=== PATIENT | male | born 1955 | race Caucasian/White ===

== ENCOUNTER 2016-11-15 17:36 | Observation (INO) | payer MEDICARE, MEDICAID ==
--- NOTE | 2016-11-15 17:51 | ER Document Report ---
ED Medical Screen (RME) - General Chief Complaint: Abdominal Pain Stated Complaint: ABDOMINAL PAIN Time Seen by Provider: 11/15/16 17:49 Mode of Arrival: Ambulatory Information source: Patient TRAVEL OUTSIDE OF THE [place] IN LAST 30 DAYS: No - HPI Patient complains to provider of: Abdominal pain, no bowel movement 2 days, vomiting Notes: 11/15/16 17:50 Patient is a 60-year-old male presenting to the emergency room from urgent care secondary to abdominal pain, patient has a history of a bowel resection in August 2015 secondary to cancer, over the past 2-3 days he has been having increasing abdominal bloating and distention, with no bowel movement and no passage of gas through his colostomy bag, he also had some vomiting - Related Data Allergies/Adverse Reactions: clindamycin [Clindamycin] Allergy (Mild, Verified 03/22/15 15:26) codeine [Codeine] Allergy (Mild, Verified 03/22/15 15:26) hydrocodone [Hydrocodone] Allergy (Mild, Verified 03/22/15 15:26) Past Medical History - Past Medical History Cardiac Medical History: Reports: Hx Hypertension Renal/ Medical History: Denies: Hx Peritoneal Dialysis Musculoskeltal Medical History: Reports Hx Fibromyalgia - Immunizations Hx Diphtheria, Pertussis, Tetanus Vaccination: No Physical Exam - Vital signs Vitals: Temp Pulse Resp BP Pulse Ox 98.4 F 110 H 18 145/91 H 94 11/15/16 17:39 11/15/16 17:39 11/15/16 17:39 11/15/16 17:39 11/15/16 17:39 Course - Vital Signs Vital signs: Temp Pulse Resp BP Pulse Ox 98.4 F 110 H 18 145/91 H 94 11/15/16 17:39 11/15/16 17:39 11/15/16 17:39 11/15/16 17:39 11/15/16 17:39
[2016-11-15] MEDS: NORMAL SALINE 1000 ML 1,000 ML IV PRN ×2 (18:05→19:42)
[2016-11-15 18:17] LABS: ABSOLUTE BASOPHILS # (AUTO) 0.1 10^3/uL (0.0-0.2); ABSOLUTE LYMPHOCYTES (AUTO) 1.4 10^3/uL (0.5-4.7); ABSOLUTE MONOCYTES (AUTO) 1.5 10^3/uL (0.1-1.4); ABSOLUTE NEUT (AUTO) 15.8 10^3/uL (1.7-8.2); BASOPHILS % (AUTO) 0.3 % (0-2); HEMOGLOBIN 17.7 g/dL (13.5-17.0); HGB HCT DIFFERENCE 2.1; LYMPHOCYTES % (AUTO) 7.7 % (13-45); MEAN CORPUSCULAR HEMOGLOBIN 30.3 pg (27.0-33.4); MEAN CORPUSCULAR HGB CONC 34.8 g/dL (32.0-36.0); MEAN CORPUSCULAR VOLUME 87 fl (80-97); MONOCYTES % (AUTO) 8.1 % (3-13); RED BLOOD COUNT 5.86 10^6/uL (4.35-5.55); SEGMENTED NEUTROPHILS % (AUTO) 83.9 % (42-78); WHITE BLOOD COUNT 18.8 10^3/uL (4.0-10.5)
[2016-11-15 18:26] LABS: APPEARANCE,URINE SLIGHTLY-CLOUDY; BILIRUBIN,URINE NEGATIVE (NEGATIVE); GLUCOSE, URINE NEGATIVE (NEGATIVE); KETONES,URINE TRACE mg/dL (NEGATIVE); LEUKOCYTE ESTERASE,URINE NEGATIVE (NEGATIVE); NITRITE,URINE NEGATIVE (NEGATIVE); PROTEIN,URINE 30 mg/dL (NEGATIVE); URINE SPECIFIC GRAVITY 1.032
[2016-11-15 18:34] LABS: ALANINE AMINOTRANSFERASE 19 U/L (21-72); ALBUMIN 4.8 g/dL (3.5-5.0); ALKALINE PHOSPHATASE 107 U/L (38-126); ANION GAP 15 (5-19); ASPARTATE AMINO TRANSFERASE 25 U/L (17-59); BILIRUBIN,DIRECT 0.5 mg/dL (0.0-0.4); BILIRUBIN,TOTAL 1.2 mg/dL (0.2-1.3); BLOOD UREA NITROGEN 34 mg/dL (7-20); CALCIUM 10.3 mg/dL (8.4-10.2); CARBON DIOXIDE 26 mmol/L (22-30); CHLORIDE 97 mmol/L (98-107); CREATININE RESULT 1.14 mg/dL (0.52-1.25); GLUCOSE 145 mg/dL (75-110); LIPASE 24.9 U/L (23-300); POTASSIUM 4.2 mmol/L (3.6-5.0); SODIUM 138.4 mmol/L (137-145); TOTAL PROTEIN 8.8 g/dL (6.3-8.2)
[2016-11-15] MEDS ORDERED: ONDANSETRON HCL INJ/PF 4 MG/2 ML SDV IV ONE (18:40)
--- NOTE | 2016-11-15 19:17 | ER Document Report ---
ED General - General Chief Complaint: Abdominal Pain Stated Complaint: ABDOMINAL PAIN Time Seen by Provider: 11/15/16 17:49 Mode of Arrival: Ambulatory Notes: Patient is a 60-year-old male with a past medical history of colon cancer status post partial colonic resection and a diverting ostomy placed 2 years ago who presents with 2 days of vomiting of what he describes to be mucus with flecks of brown material as well as an absence of any flatus or bowel movement into the ostomy bag. He does also note a generalized abdominal discomfort which he describes as a cramping, intermittent, moderately uncomfortable pain. Nothing improves or worsens his symptoms. States he has had similar episodes in the past which have resolved spontaneously at home without any need for hospitalization but he has never had vomiting in the past. He denies any fever or constitutional symptoms. He has not spoken to his surgeon regarding today's episode or concerns. TRAVEL OUTSIDE OF THE [place] IN LAST 30 DAYS: No - Related Data Allergies/Adverse Reactions: clindamycin [Clindamycin] Allergy (Mild, Verified 11/15/16 22:29) codeine [Codeine] Allergy (Mild, Verified 11/15/16 22:29) hydrocodone [Hydrocodone] Allergy (Mild, Verified 11/15/16 22:29) Home Medications: Current Home Medications Cholecalciferol (Vitamin D3) [Vitamin D3 3000 unit Tablet] 3,000 MEALS 11/15/16 [History] Past Medical History - General Information source: Patient - Social History Smoking Status: Never Smoker Frequency of alcohol use: None Drug Abuse: None Lives with: Alone Family History: Reviewed & Not Pertinent - Past Medical History Cardiac Medical History: Reports: Hx Hypertension Renal/ Medical History: Denies: Hx Peritoneal Dialysis Musculoskeltal Medical History: Reports Hx Fibromyalgia Past Surgical History: Reports: Hx Abdominal Surgery - colon resection - Immunizations Hx Diphtheria, Pertussis, Tetanus Vaccination: No Review of Systems - Review of Systems Notes: Constitutional: Negative for fever. HENT: Negative for sore throat. Eyes: Negative for visual changes. Cardiovascular: Negative for chest pain. Respiratory: Negative for shortness of breath. Gastrointestinal: Positive for abdominal pain and vomiting Genitourinary: Negative for dysuria. Musculoskeletal: Negative for back pain. Skin: Negative for rash. Neurological: Negative for headaches, weakness or numbness. 10 point ROS negative except as marked above and in HPI. Physical Exam - Vital signs Vitals: Temp Pulse Resp BP Pulse Ox 98.4 F 110 H 18 145/91 H 94 11/15/16 17:39 11/15/16 17:39 11/15/16 17:39 11/15/16 17:39 11/15/16 17:39 Interpretation: Tachycardic Notes: PHYSICAL EXAMINATION: GENERAL: Appears somewhat ill but in no acute distress HEAD: Atraumatic, normocephalic. EYES: Pupils equal round and reactive to light, extraocular movements intact, sclera anicteric, conjunctiva are normal. ENT: nares patent, oropharynx clear without exudates. Moderately dry mucous membranes. NECK: Normal range of motion, supple without lymphadenopathy LUNGS: Breath sounds clear to auscultation bilaterally and equal. No wheezes rales or rhonchi. HEART: Regular rate and rhythm without murmurs ABDOMEN: Mildly protuberant abdomen, no rigidity, soft on palpation. No localized abdominal tenderness. Hyperactive bowel sounds. No guarding, no rebound. No masses appreciated. EXTREMITIES: Normal range of motion, no pitting or edema. No cyanosis. NEUROLOGICAL: No focal neurological deficits. Moves all extremities spontaneously and on command. PSYCH: Normal mood, normal affect. SKIN: Warm, Dry, normal turgor, no rashes or lesions noted. Course - Re-evaluation Re-evalutation: 11/15/16 19:12 Patient presents with a clinical history most concerning for mechanical small bowel obstruction given the lack of a bowel movement, no flatus, and active vomiting with what sounds to be feculent material. His abdomen is protuberant on exam but without any focal areas of tenderness, some mild diffuse discomfort to palpation. Patient does also appear clinically dehydrated and his urine specific gravity is noted to be elevated at 1.032 although there is no evidence of an acute kidney injury on his conference of metabolic panel. CBC is notable for leukocytosis. Will proceed with CT abdomen pelvis with IV contrast. 2100 CT does demonstrate findings consistent with a likely obstruction. NG tube is in place. I have consulted with Dr. Sanchez who will admit. - Vital Signs Vital signs: Temp Pulse Resp BP Pulse Ox 98.3 F 110 H 17 140/79 H 96 11/15/16 22:50 11/15/16 22:50 11/15/16 22:50 11/15/16 22:50 11/15/16 22:50 - Laboratory Result Diagrams: 11/15/16 18:05 11/15/16 18:05 Laboratory results interpreted by me: 11/15/16 11/15/16 11/15/16 18:05 18:05 18:05 WBC 18.8 H RBC 5.86 H Hgb 17.7 H Seg Neutrophils % 83.9 H Lymphocytes % 7.7 L Absolute Neutrophils 15.8 H Absolute Monocytes 1.5 H Chloride 97 L BUN 34 H Glucose 145 H Calcium 10.3 H Direct Bilirubin 0.5 H ALT 19 L Total Protein 8.8 H Urine Protein 30 H Urine Ketones TRACE H Urine Urobilinogen 4.0 H Urine Ascorbic Acid 20 H - Diagnostic Test Radiology reviewed: Reports reviewed Discharge - Discharge Clinical Impression: Small bowel obstruction Condition: Fair Disposition: ADMITTED INPATIENT Admitting Provider: Surgicalist - Laura Unit Admitted: Surgical Floor
--- NOTE | 2016-11-15 19:58 | RADIOLOGY REPORT (SQ) ---
EXAM DESCRIPTION: CT ABD/PELVIS WITH IV ONLY COMPLETED DATE/TIME: 11/15/2016 7:38 pm REASON FOR STUDY: eval sbo COMPARISON: None. TECHNIQUE: CT scan of the abdomen and pelvis performed using helical scanning technique with dynamic intravenous contrast injection. No oral contrast. Images reviewed with lung, soft tissue, and bone windows. Reconstructed coronal and sagittal MPR images reviewed. Delayed images for evaluation of the urinary system also acquired. All images stored on PACS. All CT scanners at this facility use dose modulation, iterative reconstruction, and/or weight based d osing when appropriate to reduce radiation dose to as low as reasonably achievable (ALARA). [facility]: Dose Right [facility]: CareDose [facility]: Dose Right [facility]: Teradose 4D [facility]: Tellja CONTRAST TYPE AND DOSE: contrast/concentration: Isovue 370.00 mg/ml; Total Contrast Delivered: 95.0 ml; Total Saline Delivered: 71.0 ml RENAL FUNCTION: BUN 34; creatinine 1.14 RADIATION DOSE: Up-to-date CT equipment and radiation dose reduction techniques were employed. CTDIv ol: 14.6 - 19.5 mGy. DLP: 1807 mGy-cm.. LIMITATIONS: None. FINDINGS: LOWER CHEST: No significant findings. No nodules or infiltrates. Incidental note is made of lingular scarring. LIVER: Normal size. No masses. No dilated ducts. SPLEEN: Normal size. No focal lesions. PANCREAS: No masses. No significant calcifications. No adjacent inflammation or peripancreatic fluid collections. Pancreatic duct not dilated. GALLBLADDER: Gallstones. No inflammatory changes to suggest cholecystitis. ADRENAL GLANDS: No significant masses or asymmetry. RIGHT KIDNEY AND URETER: No solid masses. Incidental note is made of multiple small renal cysts. N o significant calcifications. No hydronephrosis or hydroureter. LEFT KIDNEY AND URETER: No solid masses. Incidental note is made of multiple renal cysts. No signi ficant calcifications. No hydronephrosis or hydroureter. AORTA AND VESSELS: No aneurysm. No dissection. Renal arteries, SMA, celiac without stenosis. RETROPERITONEUM: No retroperitoneal adenopathy, hemorrhage or masses. BOWEL AND PERITONEAL CAVITY: A left-sided colostomy is present. Multiple prominent fluid-filled loop s of jejunum and ileum are present, without evidence of torsion or mechanical obstruction. A small a mount of free fluid is seen adjacent to these loops of small bowel within the pelvis. There is no pn eumoperitoneum. APPENDIX: Normal. PELVIS: No mass. Normal bladder. ABDOMINAL WALL: Left ventral ostomy. No masses. No hernias. BONES: No significant or acute findings. OTHER: No other significant finding. IMPRESSION: Dilated loops of fluid-filled small bowel without evidence of volvulus or mechanical obs truction, consistent with ileus versus developing SBO. These findings are seen in the setting of a l eft-sided colostomy. TECHNICAL DOCUMENTATION: JOB ID: [id number] Quality ID # [id number]: Final reports with documentation of one or more dose reduction techniques (e.g., Au tomated exposure control, adjustment of the mA and/or kV according to patient size, use of iterative reconstruction technique) 2010 [employer]- All Rights Reserved
[2016-11-15] MEDS ORDERED: MIDAZOLAM 2 MG/2 ML INJ IV ONE (20:15)
[2016-11-15] MEDS ORDERED: RINGERS SOLUTION,LACTATED 1,000 ML IV ONE (20:17)
[2016-11-15] MEDS: MORPHINE SULFATE 10 MG/ML INJ IV PRN ×2 (20:45→22:32)
[2016-11-15] MEDS ORDERED: NA PHOS,M-B/NA PHOS,DI-BA (ADULT) 133 ML ENEMA PR ONE ×3 (21:47→22:03)
--- NOTE | 2016-11-15 21:57 | RADIOLOGY REPORT (SQ) ---
EXAM DESCRIPTION: KUB/ABDOMEN (SINGLE VIEW) COMPLETED DATE/TIME: 11/15/2016 9:38 pm REASON FOR STUDY: NGT placement COMPARISON: 11/15/2016. NUMBER OF VIEWS: One view. TECHNIQUE: Supine radiographic image of the abdomen acquired. LIMITATIONS: None. FINDINGS: BOWEL GAS PATTERN: Re- demonstration of gas filled loops of small and large bowel. CALCIFICATIONS: No suspicious calcifications. SOFT TISSUES: No gross mass or suggestion of organomegaly. HARDWARE: Interval placement of an enteric tube. The tip projects subdiaphragmatically in the left u pper quadrant; the proximal port is positioned at the level of the gastroesophageal junction. BONES: No acute fracture. No worrisome bone lesions. OTHER: No other significant finding. IMPRESSION: Interval placement of an enteric tube, the proximal port of which projects at the level of the gastroesophageal junction. Consider advancing 5 to 10 cm. TECHNICAL DOCUMENTATION: JOB ID: [id number] [employer]- All Rights Reserved
--- NOTE | 2016-11-15 22:40 | PDOC H&P ---
History of Present Illness Admission Date/PCP: 11/15/16 20:29 HILDA ME MD Patient complains of: Abdominal pains with vomiting History of Present Illness: ADAN VELAZCO JR is a 60 year old male Past Medical History Cardiac Medical History: Reports: Hypertension Malignancy Medical History: Reports: Colorectal Cancer - Had colon resection with colostomy for cancer of the colon last year Musculoskeltal Medical History: Reports: Fibromyalgia Past Surgical History Past Surgical History: Had colon resection and colostomy last year for colon cancer. Procedure was done at [facility] Patient had 2 episodes of abdominal pains with a colostomy not functioning but only for several hours. When he developed diarrhea the colostomy started to function again. This happened in the past 2 months. He did not have to go to the hospital for this 2 episodes. Social History Lives with: Alone Smoking Status: Never Smoker Frequency of Alcohol Use: Rare Hx Prescription Drug Abuse: No Family History Family History: Reviewed & Not Pertinent Parental Family History Reviewed: Yes Children Family History Reviewed: Yes Sibling(s) Family History Reviewed.: Yes Medication/Allergy Home Medications: Metoprolol Succinate 200 mg PO DAILY 03/22/15 Pregabalin [Lyrica] 1 cap PO BID 03/22/15 Allergies/Adverse Reactions: clindamycin [Clindamycin] Allergy (Mild, Verified 03/22/15 15:26) codeine [Codeine] Allergy (Mild, Verified 03/22/15 15:26) hydrocodone [Hydrocodone] Allergy (Mild, Verified 03/22/15 15:26) Review of Systems Constitutional: PRESENT: as per HPI, other - [place] warm and sweaty Eyes: PRESENT: as per HPI Nose, Mouth, and Throat: PRESENT: as per HPI Cardiovascular: PRESENT: other - No chest pain Respiratory: PRESENT: other - No cough or shortness of breath Gastrointestinal: PRESENT: as per HPI Genitourinary: PRESENT: other - No difficulty voiding Musculoskeletal: PRESENT: other - No joint pains Integumentary: PRESENT: other - No skin rash Neurological: PRESENT: other - No syncopal episode Psychiatric: PRESENT: other - No anxiety Endocrine: PRESENT: other - No heat or cold intolerance. No polyuria nor polydipsia Hematologic/Lymphatic: PRESENT: other - Hematologic/lymphatic no easy bruisability and no lymph gland enlargement Allergic/Immunologic: PRESENT: as per HPI Physical Exam Vital Signs: Temp Pulse Resp BP Pulse Ox 98.1 F 110 H 20 140/96 H 93 11/15/16 19:40 11/15/16 17:39 11/15/16 22:01 11/15/16 22:01 11/15/16 22:01 Intake & Output 11/14/16 11/15/16 11/16/16 06:59 06:59 06:59 Output Total 250 Balance -250 General appearance: PRESENT: mild distress Head exam: PRESENT: atraumatic Eye exam: PRESENT: PERRLA Ear exam: PRESENT: normal external ear exam Mouth exam: PRESENT: tongue midline Neck exam: PRESENT: other - No thyromegaly and no lymphadenopathy Respiratory exam: PRESENT: clear to auscultation sanaz, unlabored Cardiovascular exam: PRESENT: RRR Pulses: PRESENT: normal femoral pulses Vascular exam: PRESENT: normal capillary refill GI/Abdominal exam: PRESENT: other - Abdomen is soft with mild distention and mild diffuse tenderness. The colostomy is almost completely closed. It has just about a 4 mm opening. Colostomy bag is empty. Rectal exam: PRESENT: deferred Extremities exam: PRESENT: full ROM Musculoskeletal exam: PRESENT: ambulatory Neurological exam: PRESENT: alert, oriented to person, oriented to place, oriented to time, oriented to situation, CN II-XII grossly intact Psychiatric exam: PRESENT: appropriate affect, normal mood Focused psych exam: PRESENT: other - Normal affect Skin exam: PRESENT: intact, normal color, warm Results Impressions: KUB X-Ray 11/15/16 00:00 IMPRESSION: Interval placement of an enteric tube, the proximal port of which projects at the level of the gastroesophageal junction. Consider advancing 5 to 10 cm. Abdomen/Pelvis CT 11/15/16 18:39 IMPRESSION: Dilated loops of fluid-filled small bowel without evidence of volvulus or mechanical obstruction, consistent with ileus versus developing SBO. These findings are seen in the setting of a left-sided colostomy. Assessment & Plan - Time Time Spent: Greater than 70 Minutes Critical Time spent with patient: 35 or more minutes Medications reviewed and adjusted accordingly: No Anticipated discharge: Home Within: within 72 hours - Inpatient Certification Medical Necessity: Need For IV Fluids, Need for Pain Control, Risk of Complication if Not Cared For in Hospital, Other - I did at least 3 enemas through the colostomy with the fairly good results and patient feeling better afterwards with abdominal pain somewhat almost resolved - Plan Summary Plan Summary: #1 continue NG tube and n.p.o. 2. May need to redo animus through the colostomy if the colon colostomy still does not function by tomorrow 3. We will repeat the abdominal series in a.m. 4. Continue with hydration and pain management 5. Monitor white count and electrolytes. 6. We will hold off IV antibiotics for now since there is no obvious infection
[2016-11-15] MEDS ORDERED: MORPHINE SULFATE 10 MG/ML INJ IV PRN (22:46)
[2016-11-15] MEDS ORDERED: DEXTROSE 40% GEL 15 GM TUBE NG PRN ×2 (22:46)
[2016-11-15] MEDS ORDERED: DEXTROSE 50%-WATER 25 GM/50 ML DISP.SYRIN IV PRN ×2 (22:46)
[2016-11-15] MEDS ORDERED: GLUCAGON,HUMAN RECOMB 1 MG INJ SUBCUT PRN (22:46)
[2016-11-15] MEDS ORDERED: NORMAL SALINE 1000 ML 1,000 ML IV PRN (22:46)
[2016-11-15] MEDS ORDERED: PHARMACY COMMUNICATION ORDER MC NR (23:00)
--- NOTE | 2016-11-15 23:04 | Operative Report ---
Operative Report DATE OF SURGERY: 11/15/16 PREOPERATIVE DIAGNOSIS: Occluded colostomy POSTOPERATIVE DIAGNOSIS: Same OPERATION: Dilatation of colostomy then application of 3 enemas SURGEON: THOMAS ISBELL ANESTHESIA: Other TISSUE REMOVED OR ALTERED: No tissue removed. Does have lateral stool and air come out of the colostomy COMPLICATIONS: None PROCEDURE: With the colostomy practically almost occluded with just about a 3-4 mm opening the colostomy was dilated with a 14 Cymro catheter and then by 16 Cymro NG tube. Next a a day 16 Cymro red rubber catheter was then passed through the colostomy and at least about 6 inches with some gash of air. The opening was then dilated this time with the enema applicator and injected 130 cc of the saline enema through the colostomy followed by a gush of feces and some air. This was done at least 3 times. Patient had some relief of the abdominal pains following this. Roughly about 4-500 cc of stool and air were where released. Following this bag colostomy bag cover was an appliance was then reapplied. We will repeat the abdominal series in the morning and meantime continue with NG tube. If this still obstructed or evidence of small bowel obstruction by tomorrow morning then will repeat the animus of the colostomy and may be dilated a little bit further to about 22-24 Cymro with the red rubber catheter. Patient tolerated procedure well
[2016-11-16] MEDS: BENZOCAINE/MENTHOL SORE THROAT LOZENGE BUCCAL PRN ×2 (01:07→15:12)
[2016-11-16 04:49] LABS: ABSOLUTE LYMPHOCYTES (AUTO) 1.1 10^3/uL (0.5-4.7); ABSOLUTE MONOCYTES (AUTO) 1.1 10^3/uL (0.1-1.4); ABSOLUTE NEUT (AUTO) 8.1 10^3/uL (1.7-8.2); BASOPHILS % (AUTO) 0.4 % (0-2); EOSINOPHILS % (AUTO) 0.1 % (0-6); HGB HCT DIFFERENCE 2.2; LYMPHOCYTES % (AUTO) 10.7 % (13-45); MEAN CORPUSCULAR HEMOGLOBIN 30.7 pg (27.0-33.4); MEAN CORPUSCULAR HGB CONC 35.1 g/dL (32.0-36.0); MEAN CORPUSCULAR VOLUME 87 fl (80-97); MONOCYTES % (AUTO) 10.2 % (3-13); RED BLOOD COUNT 5.04 10^6/uL (4.35-5.55); RED CELL DISTRIBUTION WIDTH 12.7 % (11.5-14.0); SEGMENTED NEUTROPHILS % (AUTO) 78.6 % (42-78); WHITE BLOOD COUNT 10.3 10^3/uL (4.0-10.5)
[2016-11-16 04:54] LABS: HEMOGLOBIN 15.4 g/dL (13.5-17.0)
[2016-11-16 05:16] LABS: ANION GAP 9 (5-19); BLOOD UREA NITROGEN 26 mg/dL (7-20); CALCIUM 9.1 mg/dL (8.4-10.2); CARBON DIOXIDE 29 mmol/L (22-30); CHLORIDE 105 mmol/L (98-107); CREATININE RESULT 0.89 mg/dL (0.52-1.25); GLUCOSE 127 mg/dL (75-110); POTASSIUM 3.9 mmol/L (3.6-5.0); SODIUM 143.3 mmol/L (137-145)
--- NOTE | 2016-11-16 08:59 | RADIOLOGY REPORT (SQ) ---
EXAM DESCRIPTION: ACUTE ABDOMEN SERIES COMPLETED DATE/TIME: 11/16/2016 8:12 am REASON FOR STUDY: Follow up of SBO COMPARISON: 11/15/2016 NUMBER OF VIEWS: Three views. TECHNIQUE: Frontal chest, supine abdomen and upright/decubitus abdomen radiographic images acquired. LIMITATIONS: None. FINDINGS: Nasogastric tube tip in the distal esophagus. Increasing small bowel distention with gas fluid levels. No free air. IMPRESSION: Increasing small bowel distention. High position of NG tube. Consider advancing at lexi st 10 cm. TECHNICAL DOCUMENTATION: JOB ID: [id number] [employer]- All Rights Reserved
[2016-11-16] MEDS ORDERED: NORMAL SALINE 1000 ML 1,000 ML IV PRN (14:46)
--- NOTE | 2016-11-16 15:30 | PDOC PROGRESS REPORT ---
Subjective Progress Note for:: 11/16/16 Subjective:: As less abdominal pains. Physical Exam Vital Signs: Temp Pulse Resp BP Pulse Ox 98.5 F 114 H 18 136/75 H 92 11/16/16 11:03 11/16/16 11:03 11/16/16 11:03 11/16/16 11:03 11/16/16 11:03 Intake & Output 11/15/16 11/16/16 11/17/16 06:59 06:59 06:59 Intake Total 0 Output Total 1000 Balance -1000 Weight 88.2 kg Exam: Abdomen is soft and nontender. The colostomy has drained at least 3 colostomy bag contents since after his abdominal x-rays this morning. His NG tube also has minimal drainage. Results Laboratory Results: 11/16/16 04:27 11/16/16 04:27 11/16/16 11/16/16 04:27 04:27 WBC 10.3 RBC 5.04 Hgb 15.4 D Hct 44.0 MCV 87 MCH 30.7 MCHC 35.1 RDW 12.7 Plt Count 162 Seg Neutrophils % 78.6 H Lymphocytes % 10.7 L Monocytes % 10.2 Eosinophils % 0.1 Basophils % 0.4 Absolute Neutrophils 8.1 Absolute Lymphocytes 1.1 Absolute Monocytes 1.1 Absolute Eosinophils 0.0 Absolute Basophils 0.0 Sodium 143.3 Potassium 3.9 Chloride 105 Carbon Dioxide 29 Anion Gap 9 BUN 26 H Creatinine 0.89 Est GFR ( Amer) > 60 Est GFR (Non-Af Amer) > 60 Glucose 127 H Calcium 9.1 Impressions: KUB X-Ray 11/15/16 00:00 IMPRESSION: Interval placement of an enteric tube, the proximal port of which projects at the level of the gastroesophageal junction. Consider advancing 5 to 10 cm. Abdomen/Pelvis CT 11/15/16 18:39 IMPRESSION: Dilated loops of fluid-filled small bowel without evidence of volvulus or mechanical obstruction, consistent with ileus versus developing SBO. These findings are seen in the setting of a left-sided colostomy. Acute Abdomen Series 11/16/16 08:00 IMPRESSION: Increasing small bowel distention. High position of NG tube. Consider advancing at least 10 cm. Assessment & Plan - Diagnosis (1) Partially obstructed colostomy Is this a current diagnosis for this admission?: Yes (2) Small bowel obstruction Is this a current diagnosis for this admission?: Yes Plan: 1 continue to leave the NG tube for now. 2 possibly dilate the colostomy opening about 22/24 [place] with red rubber catheters. 3 since his white count has come down to normal will hold off giving him IV antibiotics for now. 4. Repeat the abdominal x-rays in a.m.. - Time Time Spent with patient: 25-34 minutes - Inpatient Certification Medical Necessity: Need Close Monitoring Due to Risk of Patient Decompensation, Need For IV Fluids
--- NOTE | 2016-11-16 16:12 | PROGRESS NOTE E ---
Progress Note NAME: ADAN VELAZCO : 1955 AGE: 60Y DATE: ROOM: 413 SUBJECTIVE: Patient had an x-ray of the abdomen this morning which showed increasing air in the small bowel however after coming from x-ray, his colostomy drained a lot of fecaloid material and gas. The NG tube also has not drained much. His white count came down to normal at 10.1 and I think it is okay to keep holding off given him any antibiotics at this time. He is afebrile, temperature 98.5. Heart rate still tachycardic at 114. His BUN came down a little bit from 34 to 26 this morning and the creatinine from 1.14 to 0.89 this morning. Glucose is slightly elevated to 127. PLAN: The plan is to keep the NG tube for the time being and maybe dilate a little bit more the colostomy up to 22 or 24-Danish and will give him a little bit more fluids because of his tachycardia and still elevated BUN. DICTATING PHYSICIAN: THOMAS ISBELL M.D. [id number] PHY#: [id number] ID: [id number] JOB#: [id number] ACCT: [id number] cc: >
[2016-11-16] MEDS ORDERED: INFLUENZA ADLT QUAD (36MOS+) 2017-18 VAC 0.5 ML SYR IM PRN (19:35)
[2016-11-16] MEDS: NORMAL SALINE 1000 ML 1,000 ML IV PRN (21:51)
[2016-11-17] MEDS: NORMAL SALINE 1000 ML 1,000 ML IV PRN (06:03)
--- NOTE | 2016-11-17 10:26 | DISCHARGE SUMMARY E ---
Discharge Summary NAME: ADAN VELAZCO : 1955 AGE: 60Y ADMITTED: 11/15/2016 DISCHARGED: 11/17/2016 REASON FOR ADMISSION: Bowel obstruction. SUMMARY OF HOSPITALIZATION: The patient is a 60-year-old white male with a history of colorectal carcinoma status post colectomy and colostomy who presents to the emergency department complaining of abdominal pain and ostomy output diminished. Patient has a history of 2 previous episodes in the last several months of decreased ostomy output due to ostomy stenosis. The patient underwent imaging in the emergency department and was felt to have possible small bowel obstruction. Examination of the ostomy showed minimal output and a very narrow aperture. Patient was admitted for IV fluids and pain control. Patient underwent bedside dilation with a 30-[place] Winter catheter by Dr. Sanchez and delivery of enemas with successful evacuation of gas and stool. Thereafter, the patient's clinical condition improved. He remained afebrile. His initial white blood cell count 18,000, normalized. His electrolytes were within normal limits. By the third hospital day, he was felt to receive maximum benefit from hospitalization and was discharged home. FINAL DIAGNOSES: 1. Recurrent colostomy stenosis with transient obstruction, relieved. 2. History of colorectal resection for colon carcinoma with diverting colostomy. DISPOSITION: Patient will be discharged home to the care of his family. Follow up with Dr. Lopez, general surgeon in [place]. I suggested the patient participate in self colostomy dilation with lubricant and a gloved pinky finger. We will see if he can demonstrate competency in this area before discharge home. DICTATING PHYSICIAN: MARCUS FRAIRE M.D. [id number] PHY#: [id number] ID: [id number] JOB#: [id number] ACCT: [id number] cc:MARCUS FRAIRE M.D. [facility],
[2016-11-17 11:28] VITALS: BP 130/68
== END 2016-11-17 11:42 | disposition home or self-care (01) ==
LOC: ER 17:36 → UNDOADMOB 20:29 → EH 20:29 → INTOOBSV 20:29 → EH 22:47 → 4N 22:51 → EH 22:51
PROVIDERS: ATTEND Surgery
PROC: 0D7 Gastrointestinal System, Dilation (ICD-10-PCS; principal; 2016-11-15)
PROC: 3E0234Z Introduction of Serum, Toxoid and Vaccine into Muscle, Percutaneous Approach (ICD-10-PCS; 2016-11-17)
DX: K94.03 Colostomy malfunction (principal); Y83.3 Surgical operation with formation of external stoma as the cause of abnormal reaction of the patient, or of later complication, without mention of misadventure at the time of the procedure; Z85.030 Personal history of malignant carcinoid tumor of large intestine; Z90.49 Acquired absence of other specified parts of digestive tract; I10 Essential (primary) hypertension; R00.0 Tachycardia, unspecified; Z23 Encounter for immunization
CPT/HCPCS: 45399; 99285; 96360; 96361; 36415 ×2; 87086; 83690; 85025 ×2; 80048; 80053; 81001; 74022; 74000; 74177; 90686; G0378 ×3; G0008; J2250; A9270 ×2; J2270 ×2; J2405; J7030 ×3; J7120; 90471; J3490

== ENCOUNTER 2017-05-28 20:01 | Emergency (ER) | payer MEDICARE ==
[2017-05-28 20:08] VITALS: BP 148/86
--- NOTE | 2017-05-28 23:40 | ER Document Report ---
HPI - HPI Patient complains to provider of: Concern about blood in ileostomy bag Onset: This evening Onset/Duration: Gradual Quality of pain: No pain Pain Level: Denies Context: Patient presents with a concern about possible blood in his ileostomy bag. Patient states that his surgeon attempted a colostomy reversal but due to scar tissue patient ended up with an ileostomy. Patient states that he noticed a red colored drainage in his back around 5 PM. Patient does state that he ate half a bag of hot fries chips and is uncertain if this may have caused the change in his bag drainage. Patient does report some mild lower pelvic soreness but attributes this to his physical therapy session today stating that he went really hard today. Patient without any nausea, vomiting or fever. Patient denies any other abnormal bleeding or bruising. Associated Symptoms: Other - Red drainage from ileostomy bag. denies: Fever, Headache, Nausea, Vomiting Exacerbated by: Denies Relieved by: Denies Similar symptoms previously: No Recently seen / treated by doctor: No - ROS ROS below otherwise negative: Yes Systems Reviewed and Negative: Yes All other systems reviewed and negative - CONSTITUTIONAL Constitutional: DENIES: Fever, Chills - NEURO Neurology: DENIES: Weakness - CARDIOVASCULAR Cardiovascular: DENIES: Chest pain - GASTROINTESTINAL Gastrointestinal: REPORTS: Abdominal Pain - started pt today, Black / Bloody Stools - dk orange, re in ileostomy bag. DENIES: Patient vomiting, Constipation - URINARY Urinary: DENIES: Dysuria - DERM Skin Color: Normal Skin Problems: None Past Medical History - General Information source: Patient - Social History Smoking Status: Former Smoker Chew tobacco use (# tins/day): No Frequency of alcohol use: Occasional Drug Abuse: None Occupation: None Family History: Reviewed & Not Pertinent Patient has suicidal ideation: No Patient has homicidal ideation: No - Past Medical History Cardiac Medical History: Reports: Hx Hypertension Pulmonary Medical History: Reports: Hx Pneumonia EENT Medical History: Reports: Ears - Acoustic neuroma Renal/ Medical History: Denies: Hx Peritoneal Dialysis Malignancy Medical History: Reports Hx Colorectal Cancer - Had colon resection with colostomy for cancer of the colon last year Musculoskeltal Medical History: Reports Hx Fibromyalgia Past Surgical History: Reports: Hx Abdominal Surgery - colon resection, reversal to ileostomy - Immunizations Hx Diphtheria, Pertussis, Tetanus Vaccination: No Vertical Provider Document - CONSTITUTIONAL Agree With Documented VS: Yes Exam Limitations: No Limitations General Appearance: WD/WN, No Apparent Distress - INFECTION CONTROL TRAVEL OUTSIDE OF THE [place] IN LAST 30 DAYS: No - HEENT HEENT: Atraumatic, Normocephalic - NECK Neck: Normal Inspection - RESPIRATORY Respiratory: Breath Sounds Normal, No Respiratory Distress - CARDIOVASCULAR Cardiovascular: Regular Rate, Regular Rhythm - GI/ABDOMEN Gastrointestinal: Abdomen Soft, Abdomen Tender - Mild tenderness to lower abdomen - BACK Back: Normal Inspection - MUSCULOSKELETAL/EXTREMETIES Musculoskeletal/Extremeties: MAEW - NEURO Level of Consciousness: Awake, Alert, Appropriate Motor/Sensory: No Motor Deficit - DERM Integumentary: Warm, Dry Course - Re-evaluation Re-evalutation: 05/29/17 Patient's abdomen soft, no guarding. Patient with dressings in place over his abdominal incision. No surrounding erythema around the wounds. Patient with a orange colored drainage to his ileostomy bag. Hemoccult test was negative for blood. Patient advised to eat more of a bland diet versus the hot spicy chips. Patient encouraged to follow-up with primary doctor as well as a surgeon for recheck. No concern for GI bleeding at this time. - Vital Signs Vital signs: Temp Pulse Resp BP Pulse Ox 98.0 F 108 H 18 148/86 H 96 05/28/17 20:06 05/28/17 20:06 05/28/17 20:06 05/28/17 20:06 05/28/17 20:06 - Laboratory Laboratory results interpreted by me: 05/28/17 23:38 Labs- Entire Visit 05/28/17 22:20 Stool Occult Blood NEGATIVE Discharge - Discharge Clinical Impression: red drainage to iliostomy bag Condition: Stable Disposition: HOME, SELF-CARE Additional Instructions: Return immediately for any new or worsening symptoms Followup with your primary care provider, call tomorrow to make a followup appointment Follow-up with your surgeon for recheck Avoid hot fries in the future Referrals: HILDA EM MD [Primary Care Provider] - Follow up tomorrow SAIRA SAMUELS MD [ASSOCIATE] - Follow up tomorrow
== END 2017-05-28 23:53 | disposition home or self-care (01) ==
LOC: ER 20:01
DX: R19.5 Other fecal abnormalities (principal); R10.2 Pelvic and perineal pain; I10 Essential (primary) hypertension; Z93.2 Ileostomy status; Z87.891 Personal history of nicotine dependence; Z85.048 Personal history of other malignant neoplasm of rectum, rectosigmoid junction, and anus; Z90.49 Acquired absence of other specified parts of digestive tract
CPT/HCPCS: 82272; 99283

== ENCOUNTER 2017-06-19 17:54 | Emergency (ER) | payer MEDICARE ==
--- NOTE | 2017-06-19 18:23 | ER Document Report ---
HPI - HPI Pain Level: 2 Notes: Patient is a 61-year-old male with a history of hypertension and previous colectomy status post cancer who presents to the ED complaining of possible infection to the medial side of his first toenail on the left foot 1 day. Patient states that he noticed it started getting red today and with some associated soreness. He has not noticed any purulent discharge. Patient states that he is still able to ambulate without faculties. Patient does have a tube skiver as he has fungal disease to his nails. No other concerns or complaints at this time. Denies any headache, fever, URI, sore throat, chest pain, palpitations, syncope, cough, shortness of breath, wheeze, dyspnea, abdominal pain, nausea/vomiting/diarrhea, urinary retention, dysuria, hematuria , numbness/tingling, muscle paralysis/weakness, or rash. - ROS Systems Reviewed and Negative: Yes All other systems reviewed and negative Past Medical History - Social History Smoking Status: Unknown if Ever Smoked Family History: Reviewed & Not Pertinent - Past Medical History Cardiac Medical History: Reports: Hx Hypertension Pulmonary Medical History: Reports: Hx Pneumonia Renal/ Medical History: Denies: Hx Peritoneal Dialysis Malignancy Medical History: Reports Hx Colorectal Cancer - Had colon resection with colostomy for cancer of the colon last year Musculoskeltal Medical History: Reports Hx Fibromyalgia Past Surgical History: Reports: Hx Abdominal Surgery - colon resection, reversal to ileostomy - Immunizations Hx Diphtheria, Pertussis, Tetanus Vaccination: No Vertical Provider Document - CONSTITUTIONAL Agree With Documented VS: Yes Notes: PHYSICAL EXAMINATION: GENERAL: Well-appearing, well-nourished and in no acute distress. LUNGS: Breath sounds clear to auscultation bilaterally and equal. No wheezes rales or rhonchi. HEART: Regular rate and rhythm without murmurs, rubs, gallops. Musculoskeletal: Left foot: FROM to passive/active. Strength 5+/5. N/V intact distal. No bony tenderness. Extremities: No cyanosis, clubbing, or edema b/l. Peripheral pulses 2+. Capillary refill less than 3 seconds. NEUROLOGICAL: Cranial nerves grossly intact. Normal speech, normal gait. Normal sensory, motor exams PSYCH: Normal mood, normal affect. SKIN: Left great toenail: severe onycomycosis and very thickened. There is mild erythema to the medial nail w/o obvious abscess or discharge. + mild tenderness. No felon. - INFECTION CONTROL TRAVEL OUTSIDE OF THE [place] IN LAST 30 DAYS: No Course - Re-evaluation Re-evalutation: 06/19/17 18:26 Patient is an afebrile, well-hydrated, 61-year-old male who presents to the ED with a possible early infection to the left medial great toenail w/o felon. Vitals are acceptable. PE is otherwise unremarkable. Patient has severe onychomycosis to the left great toenail. Reviewed with Dr. Husian. I will send him home with a prescription for Keflex and Bactrim. Patient is to call his tube skiver first thing Thursday morning to schedule an appointment for further evaluation and management. Recheck with your PCM in 1 week as well. Return to the ED with any worsening/concerning symptoms otherwise as reviewed discharge. Patient is in agreement. Discharge - Discharge Clinical Impression: Toe pain Qualifiers: Laterality: left Qualified Code(s): M79.675 - Pain in left toe(s) Condition: Stable Disposition: HOME, SELF-CARE Additional Instructions: Keep the skin clean Wash with soap and water Tylenol/ibuprofen if needed Triple antibiotic ointment daily Warm water soaks/Epsom salt soaks Take medication as directed Monitor for any worsening symptoms Recheck with your PCM in 1 week Call your Edge Stripper on Thursday to schedule an appointment Return to the ED with any worsening symptoms and/or development of fever, headache, chest pain, palpitations, syncope, shortness of breath, trouble breathing, abdominal pain, n/v/d, abscess, purulent discharge, red streaks, worsening swelling, or other worsening symptoms that are concerning to you. Prescriptions: Cephalexin Monohydrate [Keflex 500 mg Capsule] 500 mg PO BID #20 capsule Sulfamethoxazole/Trimethoprim [Bactrim Ds Tablet] 1 each PO BID #20 tablet Forms: Elevated Blood Pressure Referrals: HILDA EM MD [Primary Care Provider] - Follow up in 1 week JESSE BOBBY DPM [NO LOCAL MD] - 06/22/17
== END 2017-06-19 18:40 | disposition home or self-care (01) ==
LOC: ER 17:54
DX: B35.1 Tinea unguium (principal); M79.675 Pain in left toe(s); I10 Essential (primary) hypertension; Z85.048 Personal history of other malignant neoplasm of rectum, rectosigmoid junction, and anus
CPT/HCPCS: 99283

== ENCOUNTER → 2017-07-10 | Outpatient (CLI) | payer MEDICARE ==
--- NOTE | 2017-07-10 13:51 | RADIOLOGY REPORT (SQ) ---
EXAM DESCRIPTION: BARIUM ENEMA COMPLETED DATE/TIME: 07/10/2017 11:13 am REASON FOR STUDY: DIVERTICULITIS OF INTESTINE (K57.92) K57.92 DVTRCLI OF INTEST, PART UNSP, W/O PER F OR ABSCESS W/O Z93.2 ILEOSTOMY STATUS COMPARISON: None. FLUOROSCOPY TIME: 3.4 minute 44 digital images saved to PACS. TECHNIQUE: Following retrograde filling of Gastrografin, fluoroscopic spot and overhead imaging of t he colon was obtained and saved to PACS. LIMITATIONS: None. FINDINGS: CH[employer] KUB: Right lower quadrant diverting ileostomy. Normal bowel gas pattern. Rectosigm oid anastomotic moisés. Gentle gravity drip infusion of Gastrografin per rectum was performed. About 15 to 17 cm from the an us, a row of rectosigmoid anastomotic moisés is present with an end to side rectosigmoid anastomosis . Anastomosis is widely patent. No leakage of contrast from the anastomosis. 7 to 10 cm proximal to the anastomosis, a 10 cm long segment of moderate to high-grade sigmoid colon luminal narrowing is present with mucosal irregularity. This persists on filling, overhead films, an d post evac images. There are diverticuli along this segment of colon. Inflammation from diverticul itis is suspected. Remainder of the colon is normal caliber with scattered diverticuli. No gross annular constricting l esions. Reflux into a normal appendix. No reflux into the distal ileum. IMPRESSION: Intact rectosigmoid anastomosis 7 to 10 cm proximal to the anastomosis, there is a 10 cm long segment of sigmoid colon fixed narrowin g with mucosal irregularity. Diverticuli are noted in this area. This is worrisome for diverticulit is/inflammation in the distal sigmoid colon. COMMENT: Quality ID 145: Final reports for procedures using fluoroscopy that document radiation exp osure indices, or exposure time and number of fluorographic images (if radiation exposure indices are not available) TECHNICAL DOCUMENTATION: JOB ID: [id number] [employer]- All Rights Reserved Reading location - IP/workstation name: [email or web address]
== END ==
LOC: RAD 09:36
PROVIDERS: ATTEND Surgery
DX: K57.92 Diverticulitis of intestine, part unspecified, without perforation or abscess without bleeding (principal); Z93.2 Ileostomy status
CPT/HCPCS: 74270

== ENCOUNTER → 2017-08-18 | Outpatient (CLI) | payer MEDICARE ==
--- NOTE | 2017-08-18 17:16 | RADIOLOGY REPORT (SQ) ---
EXAM DESCRIPTION: CT ABD/PELVIS WITH IV ONLY COMPLETED DATE/TIME: 08/18/2017 1:51 pm REASON FOR STUDY: PERSONAL HISTORY OF MALIGNANT NEOPLASM OF LARGE INTESTINE Z85.038 PERSONAL HISTOR Y OF MALIGNANT NEOPLASM OF LARGE INTE COMPARISON: CT abdomen pelvis 11/15/2016 TECHNIQUE: CT scan of the abdomen and pelvis performed using helical scanning technique with dynamic intravenous contrast injection. No oral contrast. Images reviewed with lung, soft tissue, and bone windows. Reconstructed coronal and sagittal MPR images reviewed. Delayed images for evaluation of the urinary system also acquired. All images stored on PACS. All CT scanners at this facility use dose modulation, iterative reconstruction, and/or weight based d osing when appropriate to reduce radiation dose to as low as reasonably achievable (ALARA). [facility]: Dose Right [facility]: CareDose [facility]: Dose Right [facility]: Teradose 4D [facility]: CampaignAmp CONTRAST TYPE AND DOSE: contrast/concentration: Isovue 370.00 mg/ml; Total Contrast Delivered: 85.0 ml; Total Saline Delivered: 69.0 ml RENAL FUNCTION: Creatinine 0.9 RADIATION DOSE: CT Rad equipment meets quality standard of care and radiation dose reduction techniq ues were employed. CTDIvol: 7.0 - 7.9 mGy. DLP: 828 mGy-cm.. LIMITATIONS: None. FINDINGS: Patient is post left lower quadrant colostomy reversal. Postsurgical changes are seen aníbal ng the left lower quadrant abdominal wall fat. No ventral hernia. There is a right lower quadrant diverting ileostomy with a moderate-sized stomal hernia containing no nobstructed distal small bowel loops. There is residual oral contrast in the appendix and ascending colon from remote prior studies. The c olon is decompressed, there a row of anastomotic moisés at the rectosigmoid on coronal image 59 thro ugh 65. Scattered colonic diverticuli without CT signs of acute diverticulitis. No dilated small bowel loops worrisome for small bowel obstruction. No free intraperitoneal air or f luid. LOWER CHEST: Lung bases are clear. Calcified coronary arteries. LIVER: Normal size. No masses. No dilated ducts. SPLEEN: Normal size. No focal lesions. PANCREAS: No masses. No significant calcifications. No adjacent inflammation or peripancreatic fluid collections. Pancreatic duct not dilated. GALLBLADDER: Multiple calcified stones in the gallbladder. ADRENAL GLANDS: No significant masses or asymmetry. RIGHT KIDNEY AND URETER: No solid masses. 1.3 cm right upper pole renal cortical cyst. No significa nt calcifications. No hydronephrosis or hydroureter. LEFT KIDNEY AND URETER: No solid masses. 3 cm left lower pole renal cortical cyst. No significant c alcifications. No hydronephrosis or hydroureter. AORTA AND VESSELS: No aneurysm. No dissection. Renal arteries, SMA, celiac without stenosis. RETROPERITONEUM: No retroperitoneal adenopathy, hemorrhage or masses. BOWEL AND PERITONEAL CAVITY: As above. APPENDIX: Normal. PELVIS: No mass. No free fluid. Normal bladder. Rectosigmoid anastomotic moisés. ABDOMINAL WALL: Right lower quadrant diverting ileostomy with stomal hernia of nonobstructed small fabián wel loops. BONES: No significant or acute findings. OTHER: No other significant finding. IMPRESSION: Findings as above. TECHNICAL DOCUMENTATION: JOB ID: [id number] Quality ID # [id number]: Final reports with documentation of one or more dose reduction techniques (e.g., Au tomated exposure control, adjustment of the mA and/or kV according to patient size, use of iterative reconstruction technique) 2010 [email or web address]- All Rights Reserved Reading location - IP/workstation name: [email or web address]
== END ==
LOC: RAD 12:36
PROVIDERS: ATTEND Surgery
DX: Z85.038 Personal history of other malignant neoplasm of large intestine (principal); N28.1 Cyst of kidney, acquired; Z93.2 Ileostomy status
CPT/HCPCS: 74177; 82565